=== PATIENT | male | born 1980 | race Caucasian/White ===

== ENCOUNTER 2017-04-21 09:36 | Emergency (ER) | payer OTHER ==
[~2017-04-21] VITALS: Ht 185.4 cm; Wt 79.4 kg
--- NOTE | ~2017-04-21 | EKG ---
[place] [address] [facility] [place] [address] ELECTROCARDIOGRAM REPORT Name: GRZEGORZJUAN Room #: [facility] [place]#: [id number] Admission: 04/21/17 Attend Phys: Discharge: 04/21/17 Date of : 82 Report #: [id number] THIS REPORT FOR: //name// 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
[2017-04-21] MEDS ORDERED: IBUPROFEN 800800 M1 PO (10:37)
[2017-04-21 10:55] VITALS: BP 98/54
== END 2017-04-21 10:56 | disposition home or self-care (01) ==
LOC: ER 09:36
DX: S80.11XA Contusion of right lower leg, initial encounter (principal); S80.812A Abrasion, left lower leg, initial encounter; W20.8XXA Other cause of strike by thrown, projected or falling object, initial encounter; Y93.01 Activity, walking, marching and hiking; Y92.89 Other specified places as the place of occurrence of the external cause; Y99.8 Other external cause status